=== PATIENT | male | born 1960 | race Two or more races ===

== ENCOUNTER 2021-03-13 12:36 | Emergency (ER) | payer SELFPAY ==
[~2021-03-13] VITALS: Ht 170.2 cm; Wt 50.0 kg
[2021-03-13] MEDS ORDERED: MAGNESIUM/ALUMINUM HYDROXIDE/SIMETHICONE 30ML UDC PO STA (13:23)
[2021-03-13 14:02] LABS: HEMATOCRIT. 46.6 % (42.0-52.0); HEMOGLOBIN. 16.1 g/dL (14.0-18.0); RED BLOOD CELL COUNT 5.76 mill/uL (4.7-6.1); RED CELL DISTRIBUTION WIDTH 14.5 % (11.6-14.6)
[2021-03-13 14:08] LABS: CHLORIDE 99 mEq/L (98-107)
[2021-03-13 14:14] LABS: PLATELET 188 x1000/uL (130-400)
[2021-03-13 14:18] LABS: PLATELET ESTIMATE NORMAL
[2021-03-13 15:17] LABS: CLARITY URINE CLOUDY (CLEAR); COLOR URINE DARK YELLOW (YELLOW); KETONES URINE 1+ (NEGATIVE); LEUKOCYTE ESTERASE URINE 2+ (NEGATIVE); NITRITE URINE POSITIVE (NEGATIVE); OCCULT BLOOD URINE 2+ (NEGATIVE); PH URINE 6.5 (4.5-8.0); PROTEIN URINE 2+ (NEGATIVE); SPECIFIC GRAVITY URINE 1.023 (1.005-1.030)
[2021-03-13] MEDS ORDERED: CIPR-263 MT (18:12)
[2021-03-13 19:28] VITALS: BP 128/85
== END 2021-03-13 19:29 | disposition home or self-care (01) ==
LOC: ER 19:25
DX: N39.0 Urinary tract infection, site not specified (principal); D72.829 Elevated white blood cell count, unspecified
CPT/HCPCS: 36415; 71045; 80053; 81003; 83690; 85025; 87086; 99285; Z7610; A4315